=== PATIENT | male | born 1965 | race Caucasian/White ===

== ENCOUNTER 2016-10-21 14:54 | Emergency (ER) | payer OTHER ==
[2016-10-21] MEDS ORDERED: ceFAZolin 1,000 MG VIAL IM STA (16:45)
[2016-10-21] MEDS ORDERED: DIPH,PERTUS(ACELL)TETVAC-LF 0.5 ML VIAL IM ONE (16:45)
--- NOTE | 2016-10-21 16:48 | ED ---
Wound/Laceration HPI - General Chief Complaint: Wound/Laceration Stated Complaint: Table Saw/Finger lac Time Seen by Provider: 10/21/16 16:35 Source: patient, RN notes reviewed Mode of arrival: ambulatory Limitations: no limitations - History of Present Illness Initial Comments: 51 yo male presents to the ER with cc of right finger laceration. Patient states that he cut his right finger on a table saw today. Patient does not know his last tetanus. Patient states that he has no other injuries in the incident. Patient states his pain is moderate and throbbing. Patient denies any other injury with this. Patient states there is no radiation of the pain. Patient denies any recent fever, chills, shortness of breath, chest pain, back pain, abdominal pain, nausea vomiting, numbness or tingling, dysuria or hematuria, constipation or diarrhea, headaches or visual changes, or any other current symptoms. - Related Data Home Medications Medication Instructions Recorded Confirmed HYDROcodone/APAP 7.5-325MG [Bethel 1 tab PO Q6HR PRN 10/21/16 10/21/16 7.5-325] Levothyroxine Sodium [Synthroid] 125 mcg PO DAILY 10/21/16 10/21/16 Previous Rx's Medication Instructions Recorded Cephalexin [Keflex] 500 mg PO Q6HR #40 cap 10/21/16 Hydrocodone/Acetaminophen [Bethel 1 each PO Q6HR PRN #20 tab 10/21/16 5-325] Allergies Allergy/AdvReac Type Severity Reaction Status Date / Time lactose AdvReac Nausea & Verified 10/21/16 16:53 Vomiting & Diarrhea Inj @ MD office for Allergy Severe Swelling Uncoded 10/21/16 16:53 herniated disc Review of Systems ROS Statement: Those systems with pertinent positive or pertinent negative responses have been documented in the HPI. ROS Other: All systems not noted in ROS Statement are negative. Past Medical History Additional Past Medical History / Comment(s): lower back pain History of Any Multi-Drug Resistant Organisms: None Reported Additional Past Surgical History / Comment(s): vascectomy Past Psychological History: Depression Smoking Status: Never smoker Past Alcohol Use History: None Reported Past Drug Use History: None Reported General Exam - General Exam Comments Initial Comments: General: The patient is awake and alert, in no distress, and does not appear acutely ill. Neck: The neck is supple, there is no tenderness. Cardiovascular: There is a regular rate and rhythm. No murmur, rub or gallop is appreciated. Respiratory: Lungs are clear to auscultation, respirations are non-labored, breath sounds are equal. No wheezes, stridor, rales, or rhonchi. Musculoskeletal: Sensation intact with 2+ pulses. Right upper extremity. Fund motion of right wrist and right hand. Patient has limited motion of all digits. Patient does appear to have a 1-1/2 from a laceration to the distal aspect of the right index finger that does involve nail bed as well as nail injury. Patient does have sensation to this digit with capillary refill noted. Neurological: CN II-XII intact, There are no obvious motor or sensory deficits. Coordination appears grossly intact. Speech is normal. Skin: Skin is warm and dry and no rashes or lesions are noted. Psychiatric: Normal mood and affect. Limitations: no limitations Course Vital Signs 10/21/16 15:32 Temperature 97.8 F Pulse Rate 90 Respiratory 17 Rate Blood Pressure 149/80 O2 Sat by Pulse 95 Oximetry Procedures - Procedures Initial comment: The skin was anesthetized with 1% lidocaine. The laceration was then cleansed with Betadine and irrigated with normal saline. The wound was inspected damage the nail and nailbed and the nail was removed. No foreign body was noted in the wound. A total of 8 skin sutures were placed utilizing low nylon to a one and half centimeter laceration - Orthopedic Splinting/Casting Injury #1 Side: right Upper Extremity Injury Location: finger Upper Extremity Immobilizer: aluminum form splint Medical Decision Making - Medical Decision Making 51-year-old male presents emergency department with a chief complaint right finger laceration. At this time patient underwent suture repair. X-ray does show a distal phalanx fracture that is open. Patient did receive antibiotics here. We did discuss that the nail may never return. We did discuss that he could lose sensation we did discuss possible outcomes of this. We did discuss all the patient's questions. He stated he understood and we did discuss possible diagnoses. Patient is in agreement the plan all questions have been answered. He will be discharged. - Radiology Data Radiology results: report reviewed, image reviewed Disposition Clinical Impression: Laceration of right index finger, Nail avulsion, finger, Open fracture of finger of right hand Disposition: HOME SELF-CARE Condition: Stable Instructions: Finger Fracture (ED) Additional Instructions: Please use medication as discussed. Please follow up with family doctor if symptoms have not improved over the next two days. Please return to the emergency room if your symptoms increase or worsen or for any other concerns. Change the wound bandage daily. Keep the area clean and dry. Please return to the emergency room in 8-10 days to have sutures removed. Please leave wound covered for the first 24-48 hours and then leave open to air after that time. Please use clean soap and water to clean the suture area to prevent scabbing over the top of your sutures. Please watch for any signs of infection which may include but not limited to increased pain, swelling, redness , fever or chills. Please return to the emergency room if any signs of infection do occur. Please return to the emergency room for any other concerns or complications. Prescriptions: Cephalexin [Keflex] 500 mg PO Q6HR #40 cap Hydrocodone/Acetaminophen [Bethel 5-325] 1 each PO Q6HR PRN #20 tab PRN Reason: Pain Referrals: Elías Burnette DO [Primary Care Provider] - 1-2 days Herman Quintanilla DO [Doctor of Osteopathic Medicine] - 1-2 days Time of Disposition: 17:58
--- NOTE | 2016-10-21 17:05 | XR ---
EXAMINATION TYPE: XR finger RT DATE OF EXAM: 10/21/2016 4:59 PM COMPARISON: NONE HISTORY: 51-year-old male laceration from table saw at right second digit, pain TECHNIQUE: 3 views coned on right index finger FINDINGS: There is soft tissue injury to the tip of the index finger with comminuted fracture and posttraumatic defect of the distal phalangeal tuft. Some bone fragments are seen at the superficial aspect of the defect measuring up to 2 mm. IMPRESSION: Posttraumatic comminution, fracture, and defect of the distal second phalangeal tuft with small 2 mm bone fragments seen near the superficial aspect of the soft tissue injury. ICD 10: Initial presentation for open fracture.
[2016-10-21 18:28] VITALS: BP 131/68; PULSE 71; RESP 18; TEMP 98.3
== END 2016-10-21 18:02 | disposition home or self-care (01) ==
LOC: EC 14:54
DX: S62.630B Displaced fracture of distal phalanx of right index finger, initial encounter for open fracture (principal); S61.310A Laceration without foreign body of right index finger with damage to nail, initial encounter; Z23 Encounter for immunization; Z79.899 Other long term (current) drug therapy; Z88.8 Allergy status to other drugs, medicaments and biological substances; W29.8XXA Contact with other powered hand tools and household machinery, initial encounter
CPT/HCPCS: 99283; 12001; 96372; 90471; 73140; 90715; J0690